=== PATIENT | male | born 1960 | race Two or more races ===

== ENCOUNTER 2019-03-07 05:00 | Day surgery (SDC) | payer OTHER ==
[~2019-03-07 05:00] MED LIST: ALLOPURINOL300 MG PO; COLCHICINE0.6 MG PO; DIOVAN320 MG PO; TAMS0.4C PO; TOPROL XL50 M1 PO
== END 2019-03-07 16:50 | disposition home or self-care (01) ==
LOC: CIR.AMB 05:00
DX: K64.8 Other hemorrhoids (principal); K64.4 Residual hemorrhoidal skin tags